=== PATIENT | female | born 1945 ===

== ENCOUNTER 2018-11-23 11:27 | Outpatient (CLI) | payer MEDICARE, MEDICAID | END 2018-11-23 11:28 | disposition home or self-care (01) | LOC: C.LAB 11:27 ==

== ENCOUNTER 2018-11-24 12:10 | Day surgery (SDC) | payer MEDICARE, MEDICAID ==
[2018-11-23 11:44] VITALS: BMI 35.4
--- NOTE | 2018-11-24 16:22 | CP.PCM.CON ---
History of Present Illness - History of Present Illness History of Present Illness: Patient presented for dizziness and had tilt table test performed. Past Patient History - Infectious Disease Hx of Infectious Diseases: None - Past Medical History & Family History Past Medical History?: Yes - Past Social History Smoking Status: Never Smoked - CARDIAC Hx Cardiac Disorders: Yes Hx Hypercholesterolemia: Yes Hx Hypertension: Yes Hx Pacemaker: No Other/Comment: CAD w/ Cath w/ stent x 3 - PULMONARY Hx Respiratory Disorders: No - NEUROLOGICAL Hx Neurological Disorder: Yes Hx Migraine: Yes - HEENT Hx HEENT Problems: No - ENDOCRINE/METABOLIC Hx Endocrine Disorders: Yes Hx Diabetes Mellitus Type 2: Yes - HEMATOLOGICAL/ONCOLOGICAL Hx Blood Disorders: No Hx AIDS: No Hx Blood Transfusions: No Hx Blood Transfusion Reaction: No Hx Human Immunodeficiency Virus (HIV): No - INTEGUMENTARY Hx Dermatological Problems: No - MUSCULOSKELETAL/RHEUMATOLOGICAL Hx Musculoskeletal Disorders: No Hx Falls: Yes - GASTROINTESTINAL Hx Gastrointestinal Disorders: No - GENITOURINARY/GYNECOLOGICAL Hx Genitourinary Disorders: No - PSYCHIATRIC Hx Psychophysiologic Disorder: No Hx Emotional Abuse: No Hx Physical Abuse: No Hx Substance Use: No - SURGICAL HISTORY Hx Surgeries: Yes Hx Section: Yes Hx Coronary Stent: Yes Other/Comment: Throat surgery. Patient denies surgery during phone screen - ANESTHESIA Hx Anesthesia: Yes Hx Anesthesia Reactions: No Hx Malignant Hyperthermia: No Has any member of the family had a problem w/ anesthesia?: No Meds Allergies/Adverse Reactions: Allergies Allergy/AdvReac Type Severity Reaction Status Date / Time No Known Allergies Allergy Verified 11/23/18 11:39 Results - Labs Labs: Laboratory Results - last 24 hr 11/24/18 12:40 POC Glucose (mg/dL) 141 H Assessment & Plan - Assessment and Plan (Free Text) Plan: Tilt table test: At 0 degrees: HR was 62 and Blood pressure was 118/56 At 30 degrees: HR was 65 and BP was 105/60 At 60 degrees, HR was 67 and BP was 107/64 At 75 degrees, HR was 77 and BP was 112/75 At 90 degrees, HR was 75 and BP was 91/64. Patient complained of slight dizziness and then dizziness dissipated 0.4 tab of nitro was given at 90 degree: HR was 83 and BP was 87/61. Patient was lowered subsequently and she complained of pain in her shoulders Patient's dizziness was unrelated to changes in blood pressure or heart rate. Patient's symptoms are likely unrelated to cardiac cause - Date & Time Date: 11/24/18 Time: 16:22
== END 2018-11-24 18:35 | disposition home or self-care (01) ==
LOC: C.CATHLAB 12:10
PROVIDERS: ATTEND Internal Medicine Interventional Cardiology
DX: R07.2 Precordial pain (principal); R42 Dizziness and giddiness; E78.00 Pure hypercholesterolemia, unspecified; I10 Essential (primary) hypertension; I25.10 Atherosclerotic heart disease of native coronary artery without angina pectoris; E11.9 Type 2 diabetes mellitus without complications
CPT/HCPCS: 82948; 93660; J2405